=== PATIENT | male | born 1995 | race Caucasian/White ===

== ENCOUNTER 2017-12-30 11:55 | Emergency (ER) | payer OTHER ==
[2017-12-30 12:48] VITALS: BP 123/65
--- NOTE | 2017-12-30 12:55 | UC ---
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 He self treated with a poison eneida spray and notes that it is improved. States he is concerned because he gets severe reactions to poison eneida. He has no other complaints. - History of Current Complaint Chief Complaint: UCSkin Time Seen by Provider: 12/30/17 12:50 Stated Complaint: POS. POISON AMANDA Hx Obtained From: Patient Onset/Duration: Gradual Onset Timing: Constant Pain Intensity: 0 Aggravating Factor(s): Nothing Alleviating Factor(s): OTC Meds Associated Signs & Symptoms: Positive: Rash - Allergy/Home Medications Allergies/Adverse Reactions: Allergies Allergy/AdvReac Type Severity Reaction Status Date / Time No Known Allergies Allergy Verified 12/30/17 12:45 Home Medications: Home Medications Menthol/Camphor/Benzyl Alcohol [Poison Eneida Treatment [place]] 1 spray TOPICAL DAILY 12/30/17 [History Confirmed 12/30/17] Review of Systems Constitutional: Negative Skin: Rash Eyes: Negative ENT: Negative Respiratory: Negative Cardiovascular: Negative Gastrointestinal: Negative Genitourinary: Negative Motor: Negative Neurovascular: Negative Musculoskeletal: Negative Neurological: Negative Psychological: Negative Is Patient Immunocompromised?: No All Other Systems Reviewed And Are Negative: Yes PMH/Surg Hx/FS Hx/Imm Hx Previously Healthy: Yes - Surgical History Surgical History: None - Family History Known Family History: Positive: None - Social History Occupation: Employed Full-time Alcohol Use: None Substance Use Type: None Smoking Status (MU): Never Smoked Tobacco Type: Smokeless Tobacco Amount Used/How Often: DAILY - Immunization History Vaccination Up to Date: Yes Physical Exam Triage Information Reviewed: Yes Appearance: Well-Appearing Vital Signs: Initial Vital Signs Temp 97.9 F 12/30/17 12:42 Pulse 52 12/30/17 12:42 Resp 14 12/30/17 12:42 BP 123/65 12/30/17 12:42 Pulse Ox 100 12/30/17 12:42 Vital Signs Reviewed: Yes Eyes: Positive: Conjunctiva Clear ENT: Positive: Normal ENT inspection Neck: Positive: Supple, Nontender, No Lymphadenopathy Respiratory: Positive: Lungs clear, Normal breath sounds Cardiovascular: Positive: RRR, No Murmur Abdomen Description: Positive: Nontender, No Organomegaly, Soft Bowel Sounds: Positive: Present Musculoskeletal: Positive: ROM Intact Neurological: Positive: Alert Psychological: Positive: Age Appropriate Behavior Skin Exam: Normal Skin: Positive: rashes - Patient has some faint red lines to his volar forearms that look consistent with abrasions from being scratched by the weeds. No vesicles appreciated. Course/Dx - Course Course Of Treatment: Patient has abrasions from being scratched by weeds on his volar forearms. Involves only the areas that were exposed for a was not covered by his teacher. According to his history he did have additional rash that had resolved with a poison eneida spray prior to arrival. Given his history of severe reactions to contact dermatitis from weeds and poison eneida will cover him with a moderate by mouth dose of steroid once a day for 5 days - Diagnoses Provider Diagnoses: Contact dermatitis both forearms. Discharge - Sign-Out/Discharge Documenting (check all that apply): Patient Departure All imaging exams completed and their final reports reviewed: No Studies - Discharge Plan Condition: Stable Disposition: HOME Prescriptions: predniSONE [Prednisone 20 MG TAB] 40 mg PO DAILY 5 Days #10 tablet Patient Education Materials: Contact Dermatitis (DC) Referrals: No Primary Care Phys,[facility] [Primary Care Provider] - WIN Moreno [Medical Doctor] - 5 Days - Billing Disposition and Condition Condition: STABLE Disposition: Home
== END 2017-12-30 13:01 | disposition home or self-care (01) ==
LOC: UCCORT 11:55
DX: L25.5 Unspecified contact dermatitis due to plants, except food (principal); S50.812A Abrasion of left forearm, initial encounter; S50.811A Abrasion of right forearm, initial encounter; X58.XXXA Exposure to other specified factors, initial encounter; Y92.9 Unspecified place or not applicable
CPT/HCPCS: 99202; G0463